=== PATIENT | male | born 1975 | race Caucasian/White ===

== ENCOUNTER 2022-02-02 16:44 | Outpatient (REF) | payer BC, SELFPAY ==
[2022-02-02 19:05] LABS: Bilirubin Negative (Negative); Blood Negative (Negative); Clarity Clear (Clear); Glucose Negative (Negative); Ketones Negative (Negative); Leukocyte Esterase Negative (Negative); Nitrite Negative (Negative); Urobilinogen 0.2 EU/dL (Up TO 0.2)
[2022-02-02 19:23] LABS: Anion Gap 7.9 mmol/L (3-11); BUN 17 mg/dL (7-18); CO2 30.1 mmol/L (21.0-32.0); Calcium 9.7 mg/dL (8.5-10.1); Chloride 103 mmol/L (98-107); Estimated GFR 93.42 (mL/min/1.73m2); Glucose 79 mg/dL (74-106); Potassium 4.4 mmol/L (3.5-5.1); Sodium 141 mmol/L (136-145)
== END 2022-02-02 16:45 | disposition home or self-care (01) ==
LOC: NCHCN 16:44
PROVIDERS: PCP Nurse Practitioner Family; Visit Provider Nurse Practitioner Family
DX: E78.5 Hyperlipidemia, unspecified (principal); N52.9 Male erectile dysfunction, unspecified
CPT/HCPCS: 80048; 81003

== ENCOUNTER 2022-08-12 10:38 | Outpatient (REF) | payer BC, SELFPAY ==
[2022-08-12 20:19] LABS: ALT 62 U/L (16-63); AST 30 U/L (15-37); Albumin 4.3 g/dL (3.4-5.0); Alkaline Phosphatase 65 U/L (46-116); Anion Gap 8.7 mmol/L (3-11); BUN 19 mg/dL (7-18); Bilirubin, Total 0.7 mg/dL (0.2-1.0); CO2 29.3 mmol/L (21.0-32.0); CREATININE 1.1 mg/dL (0.70-1.30); Calcium 9.4 mg/dL (8.5-10.1); Calculated LDL 160 mg/dL (<100); Chloride 104 mmol/L (98-107); Cholesterol 223 mg/dL (<200); Estimated GFR 83.32 (mL/min/1.73m2); Glucose 93 mg/dL (74-106); HDL Cholesterol 48 mg/dL (40-60); Potassium 4.4 mmol/L (3.5-5.1); Sodium 142 mmol/L (136-145); Total Protein 8.1 g/dL (6.4-8.2); Triglyceride 75 mg/dL (<150)
== END 2022-08-12 10:39 | disposition home or self-care (01) ==
LOC: NCHCN 10:38
PROVIDERS: PCP Nurse Practitioner Family; Visit Provider Nurse Practitioner Family
DX: E78.5 Hyperlipidemia, unspecified (principal)
CPT/HCPCS: 80053; 80061

== ENCOUNTER 2023-02-04 09:34 | Outpatient (REF) | payer BC, SELFPAY ==
[2023-02-04 19:02] LABS: Calculated LDL 169 mg/dL (<100); Cholesterol 238 mg/dL (<200); HDL Cholesterol 50 mg/dL (40-60); Triglyceride 96 mg/dL (<150)
== END 2023-02-04 09:35 | disposition home or self-care (01) ==
LOC: NCHCN 09:34
PROVIDERS: PCP Nurse Practitioner Family; Visit Provider Nurse Practitioner Family
DX: E78.5 Hyperlipidemia, unspecified (principal)
CPT/HCPCS: 80061

== ENCOUNTER 2024-02-10 15:37 | Outpatient (REF) | payer BC, SELFPAY ==
[2024-02-10 20:02] LABS: ALT 67 U/L (16-63); AST 37 U/L (15-37); Albumin 4.1 g/dL (3.4-5.0); Alkaline Phosphatase 74 U/L (46-116); Anion Gap 7.6 mmol/L (3-11); BUN 11 mg/dL (7-18); Bilirubin, Total 0.63 mg/dL (0.2-1.0); CO2 27.4 mmol/L (21.0-32.0); Calcium 9.6 mg/dL (8.5-10.1); Calculated LDL 160 mg/dL (<100); Chloride 105 mmol/L (98-107); Cholesterol 229 mg/dL (<200); Estimated GFR 92.26 (mL/min/1.73m2); Glucose 91 mg/dL (74-106); HDL Cholesterol 53 mg/dL (40-60); Potassium 4.3 mmol/L (3.5-5.1); Sodium 140 mmol/L (136-145); Total Protein 7.9 g/dL (6.4-8.2); Triglyceride 81 mg/dL (<150)
== END 2024-02-10 15:38 | disposition home or self-care (01) ==
LOC: NCHCN 15:37
PROVIDERS: PCP Nurse Practitioner Family; Visit Provider Nurse Practitioner Family
DX: E78.5 Hyperlipidemia, unspecified (principal)
CPT/HCPCS: 80053; 80061